=== PATIENT | male | born 1970 | race Caucasian/White ===

== ENCOUNTER 2018-01-01 19:02 | Inpatient (IN) | payer SELFPAY ==
[2018-01-01] VITALS (11 sets, daily range): BP systolic 79–107; BP diastolic 53–72
[~2018-01-01] VITALS: Ht 188 cm; Wt 95.3 kg
--- NOTE | ~2018-01-01 | EKG ---
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
--- NOTE | ~2018-01-01 | PR ---
[place], [place] PROGRESS NOTE NAME: FADI BALBUENA UNIT #: [id number] ROOM: 409 DOCTOR: KHADIJAH, PHD PISANO BIRTHDATE: [birth year] DOS: 01/05/2018 The patient's condition is unchanged and psychological services will continue to follow. Viviana Amato PhD CM:PNTRANS [id number] PHD ALIYA AMATO 01/06/18 0410 interface
--- NOTE | ~2018-01-01 | EKG ---
[place], [place] ELECTROCARDIOGRAM REPORT NAME: FADI BALBUENA UNIT #: [id number] ROOM: [facility] DOCTOR: LADY DRAFT REPORT BIRTHDATE: [birth year] [facility] Test Date: 2018-01-02 Test Time: 01:42:56 Pat Name: FADI BALBUENA Department: Room: [facility] 1 Gender: M Risk Engineer: VERA : 1970 Requested By: AILYN THRONE Order Number: [id number] Reading MD: Albino Tang MD Measurements Intervals [place] Rate: 90 P: 22 GA: 264 QRS: -33 QRSD: 81 T: 118 QT: 400 QTc: 490 Interpretive Statements Sinus rhythm Prolonged GA interval Low voltage, extremity leads Anteroseptal infarct, old Compared to ECG 01/01/2018 20:44:06 No significant change Electronically Signed On 01-02-2018 19:14:40 PDT by Albino Tang MD CM:EKGRPT:ELECTROCARDIOGRAM REPORT 1914 AILYN BRASHER DRAFT REPORT
--- NOTE | ~2018-01-01 | EKG ---
[place], [place] ELECTROCARDIOGRAM REPORT NAME: FADI BALBUENA UNIT #: [id number] ROOM: 409 DOCTOR: LADY DRAFT REPORT BIRTHDATE: [birth year] [facility] Test Date: 2018-01-10 Test Time: 02:31:14 Pat Name: FADI BALBUENA Department: [facility] Room: 409 1 Gender: M Yarder Engineer: Albino Apple : 1970 Requested By: CRESCENCIO HORVATH Order Number: [id number] Reading MD: Albino Tang MD Measurements Intervals [place] Rate: 79 P: 62 TN: 205 QRS: -64 QRSD: 90 T: 73 QT: 395 QTc: 454 Interpretive Statements Sinus rhythm Probable left atrial enlargement Low voltage, extremity leads Anteroseptal infarct, age indeterminate Compared to ECG 01/02/2018 06:40:29 Myocardial infarct finding still present Electronically Signed On 01-10-2018 6:00:45 PDT by Albino Tang MD CM:EKGRPT:ELECTROCARDIOGRAM REPORT 0 06 CRESCENCIO HORVATH DO EPIPHANY DRAFT REPORT CRESCENCIO HORVATH DO
--- NOTE | ~2018-01-01 | PR ---
[place], [place] PROGRESS NOTE NAME: FADI BALBUENA UNIT #: [id number] ROOM: 409 DOCTOR: CHANTAL ANDREWS ED.D MAR[place]) BIRTHDATE: [birth year] DOS: 01/05/2018 HISTORY OF PRESENT ILLNESS: The patient is a 48-year-old male referred by the hospitalist following a suicide attempt. He apparently was found near [facility] in [place], [place] after an overdose of Xanax and Glucophage. He is and I did meet along with Dr. Amato with the patient's , Shaylee. He does have one son. 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 He presently resides in [place], [place]. His medical history is pertinent for diabetes mellitus, congestive heart failure, multiple CVAs and major depressive disorder. According to his , he was treated at [facility] and then sent to [facility] in [place] for his heart issues. His ejection fraction ranges anywhere from 10%-35% when he was at [facility]. His medications include aspirin, Lasix, insulin, magnesium oxide, metformin, Aldactone, Wellbutrin, Diovan, losartan, Plavix, and Xanax. He denies any substance abuse issues whatsoever. This patient was somewhat awake and fairly lucid throughout the interview. He knew he was in the hospital, but he did not know which hospital. He did not know the date, but did know that it was 12/2017. His memory seemed to be slightly impaired because he was still quite lethargic from the overdose of drugs, in particular the Xanax. He states that he does follow with Dr. Elizondo who is a psychiatrist in [place], [place]. His indicated that was accurate, but he did not have a therapist. I strongly suggested he needed therapist once he is discharged from the hospital and he did agree with that. He states he has been given Xanax for anxiety attacks at one time, but does suffer from severe depression. The patient states that he became overwhelmed and depressed and decided to kill himself and then took his overdose of medications. At the present time, he adamantly denies any suicidal ideation or plan, but I will reserve final judgment until he is more medically stable. At this point in time, I do not think he needs inpatient psychiatric treatment, but I am not certain of that until he is closer to discharge. DIAGNOSES: Major depressive disorder, recurrent -- severe. RECOMMENDATIONS: The patient will need to follow up outpatient for Psychiatry and Psychology. Thank you very much for this consult. [place], [place] PROGRESS NOTE NAME: FADI BALBUENA UNIT #: [id number] ROOM: 409 DOCTOR: CHANTAL ANDREWS ED.D) BIRTHDATE: [birth year] CHANTAL ANDREWS ED.D CM:TANG 1506 [id number] CHANTAL ANDREWS ED.D (BOB) 01/19/18 0651 interface
--- NOTE | ~2018-01-01 | EKG ---
[place], [place] ELECTROCARDIOGRAM REPORT NAME: FADI BALBUENA UNIT #: [id number] ROOM: [facility] DOCTOR: LADY DRAFT REPORT BIRTHDATE: [birth year] [facility] Test Date: 2018-01-02 Test Time: 00:40:03 Pat Name: FADI BALBUENA Department: Room: [facility] 1 Gender: M Field Marketing Manager: VERA : 1970 Requested By: AILYN THORNE Order Number: [id number] Reading MD: Albino Tang MD Measurements Intervals [place] Rate: 86 P: 37 WV: 270 QRS: -35 QRSD: 85 T: QT: 400 QTc: 479 Interpretive Statements Sinus rhythm Prolonged [place] interval Low voltage, extremity leads Probable anteroseptal infarct, old Nonspecific T abnormalities, lateral leads Baseline wander in lead(s) V4 Compared to ECG 01/01/2018 20:44:06 First degree AV block now present T-wave abnormality is more prominent ST (T wave) deviation no longer present Electronically Signed On 01-02-2018 19:10:47 PDT by Albino Tang MD CM:EKGRPT:ELECTROCARDIOGRAM REPORT 09 AILYN LAOANY DRAFT REPORT AILYN THORNE DO
--- NOTE | ~2018-01-01 | EKG ---
[place], [place] ELECTROCARDIOGRAM REPORT NAME: FADI BALBUENA UNIT #: [id number] ROOM: [facility] DOCTOR: LADY DRAFT REPORT BIRTHDATE: [birth year] [facility] Test Date: 2018-01-02 Test Time: 01:36:20 Pat Name: FADI BALBUENA Department: Room: [place] [address] Gender: M External Relations Manager: VERA : 1970 Requested By: AILYN THORNE Order Number: [id number] Reading MD: Measurements Intervals [place] Rate: 88 P: 24 OR: 264 QRS: -28 QRSD: 82 T: QT: 419 QTc: 507 Interpretive Statements Sinus rhythm Prolonged OR interval Anterior infarct, old Nonspecific T abnormalities, lateral leads Prolonged QT interval Compared to ECG 01/01/2018 20:44:06 First degree AV block now present Myocardial infarct finding now present T-wave abnormality now present Prolonged QT interval now present Ventricular premature complex(es) no longer present ST (T wave) deviation no longer present CM:EKGRPT:ELECTROCARDIOGRAM REPORT 0136 AILYN BRASHER DRAFT REPORT AILYN THORNE DO
--- NOTE | ~2018-01-01 | EKG ---
[place], [place] ELECTROCARDIOGRAM REPORT NAME: FADI BALBUENA UNIT #: [id number] ROOM: [facility] DOCTOR: LADY DRAFT REPORT BIRTHDATE: [birth year] [facility] Test Date: 2018-01-01 Test Time: 19:34:15 Pat Name: FADI ANN Department: ER Room: 2 Gender: M Physical Testing Supervisor: VERA : 1970 Requested By: ANALY LIANG Order Number: [id number] Reading MD: Albino Tang MD Measurements Intervals [place] Rate: 97 P: 13 NH: 262 QRS: -28 QRSD: 93 T: 147 QT: 392 QTc: 498 Interpretive Statements Sinus rhythm Prolonged [place] interval Probable left atrial enlargement Borderline left axis deviation Low voltage, extremity leads Probable anteroseptal infarct, old Electronically Signed On 01-01-2018 19:39:56 PDT by Albino Tang MD CM:EKGRPT:ELECTROCARDIOGRAM REPORT 33 38 ANALY BRASHER DRAFT REPORT ANALY LIANG DO
--- NOTE | ~2018-01-01 | CON ---
[place], [place] REPORT OF CONSULTATION NAME: FADI BALBUENA UNIT #: [id number] ROOM: [facility] DOCTOR: CHANTAL ANDREWS ED.D (GURU) BIRTHDATE: [birth year] DOS: 01/02/2018 HISTORY OF PRESENT ILLNESS: The patient is a 47-year-old male referred by the hospitalist for an evaluation following a suicide attempt. At the present time, he is in the intensive care unit at [facility], but he remains comatose at this time. I was unable to complete an evaluation of this patient, but from his history, it appears that he suffers from diabetes mellitus, congestive heart failure, major depression and CVA. MEDICATIONS: Include aspirin, Lasix, insulin, magnesium oxide, metformin, Aldactone, Wellbutrin, Diovan, losartan, Plavix, and Xanax. He apparently has attempted suicide at one time in the past. I will reevaluate this patient on Wednesday, January 03, 2018 for a final summary of my recommendations. DIAGNOSIS: Major depressive disorder, severe, recurrent. Thank you very much for this consult. CHANTAL ANDREWS ED.D CM:CONSTR:REPORT OF CONSULTATION 1727 01/03/18 0526 interface
--- NOTE | ~2018-01-01 | EKG ---
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
--- NOTE | ~2018-01-01 | EKG ---
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
--- NOTE | ~2018-01-01 | PR ---
[place], [place] PROGRESS NOTE NAME: FADI BALBUENA UNIT #: [id number] ROOM: 409 DOCTOR: JULIANA DAILY,CHANTAL HORAN) BIRTHDATE: [birth year] DOS: SUBJECTIVE: At the present time, this patient denies any suicidal ideation or plan. He did admit to taking Xanax and also an increase in his Glucophage. He states that he no longer has any plans to hurt himself and will follow up with outpatient psychiatry and psychology. The patient and his were both together and she said she will make certain that he does get the therapy and he is quite willing to go. Since he is no longer suicidal, I believe this patient may be discharged home with his . He states he felt very badly that he did anything to hurt himself because he did not want to do anything to harm his 7-year-old son or his . DIAGNOSIS: Major depressive disorder, recurrent, severe. RECOMMENDATIONS: 1. The patient will be discharged when medically stable. 2. The patient should follow up with outpatient psychiatry and psychology once he is discharged from the hospital. Thank you very much for this consult. CHANTAL ANDREWS ED.D CM:TANG 24 7 CHANTAL ANDREWS ED.D (BOB) 01/07/18 0357 interface
[2018-01-01 19:21] LABS: BASO % 0.3 % (0.0-1.0); EOS # 0.1 10*3/uL (0.0-0.4); EOS % 2.4 % (1.0-4.0); HEMATOCRIT 32.8 % (42.0-52.0); HEMOGLOBIN 11.5 g/dl (14.0-18.0); LYMPH # 2.2 10*3/uL (1.3-4.4); LYMPH % 37.5 % (27.0-41.0); MEAN CELL VOLUME 91.9 fl (80.0-94.0); MEAN CORPUSCULAR HGB 32.2 pg (27.0-31.0); MEAN CORPUSCULAR HGB CONC 35.1 g/dl (33.0-37.0); MEAN PLATELET VOLUME 9.7 fl (9.6-12.3); MONO # 0.5 10*3/uL (0.1-1.0); MONO % 8.7 % (3.0-9.0); NEUT % 50.9 % (47.0-73.0); PLATELET COUNT AUTOMATED 311 10*3/uL (130-400); RED BLOOD COUNT 3.57 10*6/uL (4.50-5.90); RED CELL DISTRI WIDTH 13.8 % (0-14.5); WHITE BLOOD COUNT 5.9 10*3/uL (4.8-10.8)
[2018-01-01 19:30] LABS: ACT PARTIAL THROMBO TIME 23.6 SECONDS (20.8-31.5)
[2018-01-01 19:38] LABS: ALBUMIN 2.8 gm/dl (3.1-4.5); ALKALINE PHOSPHATASE 50 U/L (45-117); BUN 12 mg/dl (7-24); CHLORIDE 108 mmol/L (98-107); CREATININE 1.03 mg/dL (0.70-1.30); SGOT/AST 11 IU/L (3-35); SGPT/ALT 17 U/L (12-78); SODIUM 139 mmol/L (136-145); TOTAL PROTEIN 6.4 gm/dL (6.4-8.2)
[2018-01-01 19:39] LABS: TROPONIN I 0.032 ng/ml (<0.045)
[2018-01-01 19:41] LABS: ACETAMINOPHEN (TYLENOL) < 2.0 ug/ml (10-30); ETHYL ALCOHOL < 3.0 mg/dl (<3)
[2018-01-01 19:48] LABS: BILIRUBIN NEGATIVE (NEGATIVE); BLOOD NEGATIVE (NEGATIVE); CLARITY CLEAR (CLEAR); COLOR YELLOW (YELLOW); GLUCOSE 3+ (NEGATIVE); KETONE NEGATIVE (NEGATIVE); LEUKO ESTERASE NEGATIVE (NEGATIVE); NITRITE NEGATIVE (NEGATIVE); UROBILINOGEN 0.2 E.U./dl (0.2-1.0)
[2018-01-01 19:56] LABS: URINE AMPHETAMINES > 1000 (1000ng/ml); URINE BARBITURATES < 200 (200ng/ml); URINE BENZODIAZEPINES > 200 (200ng/ml); URINE CANNABINOIDS (THC) < 50 (50ng/ml); URINE COCAINE < 300 (300ng/ml); URINE METHADONE < 300 (300ng/ml); URINE OPIATES < 300 (300ng/ml)
[2018-01-01 19:57] LABS: URINE PHENCYCLIDINE < 25 (25ng/ml)
[2018-01-01] MEDS ORDERED: ASPIRIN CHEWABL81 MG PO (20:07)
[2018-01-01] MEDS ORDERED: CARVEDILOL3.125 MG PO (20:11)
[2018-01-01] MEDS ORDERED: ASPIRIN ADULT L81 MG PO (20:11)
[2018-01-01] MEDS ORDERED: LASIX40 MG PO (20:12)
[2018-01-01] MEDS ORDERED: HUMULIN 70100 UNIT/1 SQ (20:13)
[2018-01-01] MEDS ORDERED: MAGNESIUM OXID250 M2 PO (20:16)
[2018-01-01] MEDS ORDERED: GLUCOPHAGE1000 MG PO (20:29)
[2018-01-01] MEDS ORDERED: ALDACTONE25 M1 PO (20:30)
[2018-01-01] MEDS ORDERED: WELLBUTRIN SR150 MG PO (20:30)
[2018-01-01] MEDS ORDERED: PLAVIX75 M1 PO (20:31)
[2018-01-01] MEDS ORDERED: METOLAZONE2.5 MG PO (20:31)
[2018-01-01] MEDS ORDERED: LOSARTAN POTASS25 M1 PO (20:31)
[2018-01-01] MEDS ORDERED: DIOVAN80 M1 PO (20:31)
[2018-01-01] MEDS ORDERED: ZYLOPRIM300 MG PO (20:32)
[2018-01-01] MEDS ORDERED: XANAX0.5 MG PO (20:32)
[2018-01-01 21:10] LABS: ABG BASE EXCESS -2.4 mmol/L (-2.0-2.0); ABG HCO3 22.9 mmol/l (22-26); ABG O2 SATURATION 98.5 % (95-97); ARTERIAL BLOOD GAS PCO2 44.5 mmHg (35-45); ARTERIAL BLOOD GAS PH 7.332 (7.35-7.45)
[2018-01-02] VITALS (52 sets, daily range): BP systolic 87–122; BP diastolic 57–92
[2018-01-02 08:23] LABS: BASO % 0.2 % (0.0-1.0); EOS # 0.1 10*3/uL (0.0-0.4); EOS % 1.5 % (1.0-4.0); HEMATOCRIT 34.2 % (42.0-52.0); HEMOGLOBIN 11.7 g/dl (14.0-18.0); LYMPH # 1.4 10*3/uL (1.3-4.4); LYMPH % 16.2 % (27.0-41.0); MEAN CELL VOLUME 93.7 fl (80.0-94.0); MEAN CORPUSCULAR HGB 32.1 pg (27.0-31.0); MEAN CORPUSCULAR HGB CONC 34.2 g/dl (33.0-37.0); MEAN PLATELET VOLUME 9.8 fl (9.6-12.3); MONO # 0.5 10*3/uL (0.1-1.0); MONO % 5.4 % (3.0-9.0); NEUT # 6.8 10*3/uL (2.3-7.9); NEUT % 76.3 % (47.0-73.0); PLATELET COUNT AUTOMATED 316 10*3/uL (130-400); RED BLOOD COUNT 3.65 10*6/uL (4.50-5.90); RED CELL DISTRI WIDTH 14.1 % (0-14.5); WHITE BLOOD COUNT 8.9 10*3/uL (4.8-10.8)
[2018-01-02 08:54] LABS: CHLORIDE 111 mmol/L (98-107); POTASSIUM 4.6 mmol/L (3.5-5.1); SODIUM 141 mmol/L (136-145)
[2018-01-02 09:01] LABS: BUN 11 mg/dl (7-24); CHOLESTEROL 155 mg/dL (<200); CREATININE 0.95 mg/dL (0.70-1.30); HDL CHOLESTEROL 26 mg/dl (40-60); LDL CHOLESTEROL 90 mg/dL (9-159); PHOSPHOROUS 2.6 mg/dL (2.5-4.9); TRIGLYCERIDES 194 mg/dl (<150); VLDL CHOLESTEROL 39 mg/dL (6-40)
[2018-01-02 09:22] LABS: VITAMIN D, 25-HYDROXY 20.6 ng/mL (30-100)
[2018-01-03] VITALS (18 sets, daily range): BP systolic 104–206; BP diastolic 66–102
[2018-01-03 05:26] LABS: ALBUMIN 2.7 gm/dl (3.1-4.5); BUN 9 mg/dl (7-24); CHLORIDE 112 mmol/L (98-107); POTASSIUM 3.8 mmol/L (3.5-5.1); SODIUM 141 mmol/L (136-145)
[2018-01-03 05:29] LABS: ALKALINE PHOSPHATASE 51 U/L (45-117); CREATININE 0.89 mg/dL (0.70-1.30); SGOT/AST 8 IU/L (3-35); SGPT/ALT 15 U/L (12-78); TOTAL PROTEIN 6.5 gm/dL (6.4-8.2)
[2018-01-03 05:51] LABS: BASO % 0.2 % (0.0-1.0); EOS # 0.2 10*3/uL (0.0-0.4); EOS % 1.6 % (1.0-4.0); HEMATOCRIT 34.8 % (42.0-52.0); LYMPH # 1.3 10*3/uL (1.3-4.4); LYMPH % 13.1 % (27.0-41.0); MEAN CELL VOLUME 95.6 fl (80.0-94.0); MEAN CORPUSCULAR HGB CONC 34.5 g/dl (33.0-37.0); MEAN PLATELET VOLUME 10.1 fl (9.6-12.3); MONO # 0.6 10*3/uL (0.1-1.0); MONO % 6.3 % (3.0-9.0); NEUT # 7.8 10*3/uL (2.3-7.9); NEUT % 78.5 % (47.0-73.0); PLATELET COUNT AUTOMATED 309 10*3/uL (130-400); RED BLOOD COUNT 3.64 10*6/uL (4.50-5.90); RED CELL DISTRI WIDTH 14.3 % (0-14.5); WHITE BLOOD COUNT 9.9 10*3/uL (4.8-10.8)
[2018-01-04] VITALS: BP 121/85
[2018-01-04 04:00] VITALS: BP 129/93
[2018-01-04 06:03] LABS: BASO % 0.1 % (0.0-1.0); EOS # 0.1 10*3/uL (0.0-0.4); EOS % 1.2 % (1.0-4.0); HEMATOCRIT 36.7 % (42.0-52.0); HEMOGLOBIN 12.9 g/dl (14.0-18.0); LYMPH # 1.7 10*3/uL (1.3-4.4); LYMPH % 17.7 % (27.0-41.0); MEAN CELL VOLUME 95.6 fl (80.0-94.0); MEAN CORPUSCULAR HGB 33.6 pg (27.0-31.0); MEAN CORPUSCULAR HGB CONC 35.1 g/dl (33.0-37.0); MEAN PLATELET VOLUME 10.2 fl (9.6-12.3); MONO # 0.5 10*3/uL (0.1-1.0); MONO % 5.4 % (3.0-9.0); NEUT # 7.4 10*3/uL (2.3-7.9); NEUT % 75.3 % (47.0-73.0); PLATELET COUNT AUTOMATED 302 10*3/uL (130-400); RED BLOOD COUNT 3.84 10*6/uL (4.50-5.90); RED CELL DISTRI WIDTH 14.6 % (0-14.5); WHITE BLOOD COUNT 9.9 10*3/uL (4.8-10.8)
[2018-01-04 06:05] LABS: ALBUMIN 2.8 gm/dl (3.1-4.5); BUN 10 mg/dl (7-24); CHLORIDE 112 mmol/L (98-107); CREATININE 0.86 mg/dL (0.70-1.30); POTASSIUM 4.1 mmol/L (3.5-5.1); SGOT/AST 12 IU/L (3-35); SGPT/ALT 14 U/L (12-78); SODIUM 141 mmol/L (136-145)
[2018-01-04 06:08] LABS: ALKALINE PHOSPHATASE 53 U/L (45-117)
[2018-01-04 08:00] VITALS: BP 129/96
[2018-01-04 12:00] VITALS: BP 138/96
[2018-01-04 16:00] VITALS: BP 122/93
[2018-01-04 20:00] VITALS: BP 129/86
[2018-01-05] VITALS: BP 130/56
[2018-01-05 04:00] VITALS: BP 133/91
[2018-01-05 06:24] LABS: BUN 9 mg/dl (7-24); CHLORIDE 112 mmol/L (98-107); CREATININE 0.83 mg/dL (0.70-1.30); POTASSIUM 4.3 mmol/L (3.5-5.1); SODIUM 140 mmol/L (136-145)
[2018-01-05 06:26] LABS: HEMATOCRIT 36.8 % (42.0-52.0); HEMOGLOBIN 13.2 g/dl (14.0-18.0); MEAN CELL VOLUME 95.3 fl (80.0-94.0); MEAN CORPUSCULAR HGB 34.2 pg (27.0-31.0); MEAN CORPUSCULAR HGB CONC 35.9 g/dl (33.0-37.0); MEAN PLATELET VOLUME 10.7 fl (9.6-12.3); PLATELET COUNT AUTOMATED 277 10*3/uL (130-400); RED BLOOD COUNT 3.86 10*6/uL (4.50-5.90); RED CELL DISTRI WIDTH 14.3 % (0-14.5); WHITE BLOOD COUNT 11.3 10*3/uL (4.8-10.8)
[2018-01-05 08:00] VITALS: BP 141/95
[2018-01-05 08:13] LABS: BASOPHILS 1 % (0-1); PLATELET SUFFICIENCY NORMAL (NORMAL); TOTAL CELLS COUNTED 100 #CELLS
[2018-01-05 12:00] VITALS: BP 120/84
[2018-01-05 16:00] VITALS: BP 134/89
[2018-01-05 20:00] VITALS: BP 138/84
[2018-01-06] VITALS: BP 140/89
[2018-01-06 08:00] VITALS: BP 142/84
[2018-01-06 12:00] VITALS: BP 140/78
[2018-01-06 16:00] VITALS: BP 133/89
[2018-01-06 20:00] VITALS: BP 140/93
[2018-01-07] VITALS: BP 110/70
[2018-01-07 06:28] LABS: BASO % 0.3 % (0.0-1.0); EOS # 0.1 10*3/uL (0.0-0.4); EOS % 1.8 % (1.0-4.0); HEMOGLOBIN 10.5 g/dl (14.0-18.0); LYMPH # 1.5 10*3/uL (1.3-4.4); LYMPH % 20.5 % (27.0-41.0); MEAN CELL VOLUME 95.8 fl (80.0-94.0); MEAN CORPUSCULAR HGB 33.5 pg (27.0-31.0); MEAN PLATELET VOLUME 9.6 fl (9.6-12.3); MONO # 0.6 10*3/uL (0.1-1.0); MONO % 7.8 % (3.0-9.0); NEUT % 69.2 % (47.0-73.0); PLATELET COUNT AUTOMATED 287 10*3/uL (130-400); RED BLOOD COUNT 3.13 10*6/uL (4.50-5.90); RED CELL DISTRI WIDTH 14.1 % (0-14.5); WHITE BLOOD COUNT 7.2 10*3/uL (4.8-10.8)
[2018-01-07 06:39] LABS: ALBUMIN 2.2 gm/dl (3.1-4.5); ALKALINE PHOSPHATASE 57 U/L (45-117); BUN 9 mg/dl (7-24); CHLORIDE 104 mmol/L (98-107); CREATININE 0.84 mg/dL (0.70-1.30); PHOSPHOROUS 3.5 mg/dL (2.5-4.9); POTASSIUM 3.6 mmol/L (3.5-5.1); SGOT/AST 7 IU/L (3-35); SGPT/ALT 11 U/L (12-78); SODIUM 137 mmol/L (136-145); TOTAL PROTEIN 6.2 gm/dL (6.4-8.2)
[2018-01-07 09:45] VITALS: BP 110/78
[2018-01-07 12:00] VITALS: BP 112/70
[2018-01-07 16:00] VITALS: BP 113/75
[2018-01-07 20:00] VITALS: BP 105/66
[2018-01-08] VITALS: BP 93/57
[2018-01-08 07:07] LABS: BASO % 0.4 % (0.0-1.0); EOS # 0.3 10*3/uL (0.0-0.4); EOS % 3.3 % (1.0-4.0); HEMATOCRIT 34.6 % (42.0-52.0); HEMOGLOBIN 12.1 g/dl (14.0-18.0); LYMPH # 1.5 10*3/uL (1.3-4.4); LYMPH % 19.5 % (27.0-41.0); MEAN CELL VOLUME 94.5 fl (80.0-94.0); MEAN CORPUSCULAR HGB 33.1 pg (27.0-31.0); MEAN PLATELET VOLUME 9.7 fl (9.6-12.3); MONO # 0.6 10*3/uL (0.1-1.0); MONO % 7.4 % (3.0-9.0); NEUT # 5.2 10*3/uL (2.3-7.9); PLATELET COUNT AUTOMATED 322 10*3/uL (130-400); RED BLOOD COUNT 3.66 10*6/uL (4.50-5.90); RED CELL DISTRI WIDTH 13.5 % (0-14.5); WHITE BLOOD COUNT 7.5 10*3/uL (4.8-10.8)
[2018-01-08 07:41] LABS: CHLORIDE 96 mmol/L (98-107); POTASSIUM 3.8 mmol/L (3.5-5.1); SODIUM 133 mmol/L (136-145)
[2018-01-08 08:04] LABS: ALBUMIN 2.5 gm/dl (3.1-4.5); ALKALINE PHOSPHATASE 72 U/L (45-117); BUN 16 mg/dl (7-24); CREATININE 0.92 mg/dL (0.70-1.30); SGOT/AST 10 IU/L (3-35); SGPT/ALT 12 U/L (12-78); TOTAL PROTEIN 7.2 gm/dL (6.4-8.2)
[2018-01-08 09:45] VITALS: BP 110/72
[2018-01-08 12:00] VITALS: BP 92/64
[2018-01-08 15:56] VITALS: BP 105/69
[2018-01-08 20:00] VITALS: BP 117/73
[2018-01-09] VITALS: BP 104/68
[2018-01-09 06:44] LABS: BASO % 0.3 % (0.0-1.0); EOS # 0.3 10*3/uL (0.0-0.4); EOS % 2.6 % (1.0-4.0); HEMATOCRIT 30.3 % (42.0-52.0); HEMOGLOBIN 10.8 g/dl (14.0-18.0); LYMPH # 2.1 10*3/uL (1.3-4.4); LYMPH % 20.4 % (27.0-41.0); MEAN CELL VOLUME 92.9 fl (80.0-94.0); MEAN CORPUSCULAR HGB 33.1 pg (27.0-31.0); MEAN CORPUSCULAR HGB CONC 35.6 g/dl (33.0-37.0); MEAN PLATELET VOLUME 9.7 fl (9.6-12.3); MONO # 0.7 10*3/uL (0.1-1.0); MONO % 7.1 % (3.0-9.0); NEUT # 7.1 10*3/uL (2.3-7.9); NEUT % 69.2 % (47.0-73.0); PLATELET COUNT AUTOMATED 403 10*3/uL (130-400); RED BLOOD COUNT 3.26 10*6/uL (4.50-5.90); RED CELL DISTRI WIDTH 13.2 % (0-14.5); WHITE BLOOD COUNT 10.3 10*3/uL (4.8-10.8)
[2018-01-09 06:58] LABS: ALBUMIN 2.6 gm/dl (3.1-4.5); ALKALINE PHOSPHATASE 64 U/L (45-117); BUN 20 mg/dl (7-24); CHLORIDE 93 mmol/L (98-107); CREATININE 1.01 mg/dL (0.70-1.30); POTASSIUM 3.9 mmol/L (3.5-5.1); SGOT/AST 10 IU/L (3-35); SGPT/ALT 13 U/L (12-78); SODIUM 132 mmol/L (136-145); TOTAL PROTEIN 7.5 gm/dL (6.4-8.2)
[2018-01-09 08:00] VITALS: BP 104/68
[2018-01-09 12:00] VITALS: BP 116/77
[2018-01-09 16:00] VITALS: BP 101/65; BP 101/66
[2018-01-09 20:00] VITALS: BP 107/74
[2018-01-10] VITALS: BP 100/60
[2018-01-10 05:55] LABS: BASO % 0.3 % (0.0-1.0); EOS # 0.2 10*3/uL (0.0-0.4); HEMOGLOBIN 12.5 g/dl (14.0-18.0); LYMPH # 1.4 10*3/uL (1.3-4.4); LYMPH % 19.1 % (27.0-41.0); MEAN CELL VOLUME 92.5 fl (80.0-94.0); MEAN CORPUSCULAR HGB 32.1 pg (27.0-31.0); MEAN CORPUSCULAR HGB CONC 34.7 g/dl (33.0-37.0); MEAN PLATELET VOLUME 9.3 fl (9.6-12.3); MONO # 0.6 10*3/uL (0.1-1.0); MONO % 8.5 % (3.0-9.0); NEUT # 5.2 10*3/uL (2.3-7.9); NEUT % 69.7 % (47.0-73.0); PLATELET COUNT AUTOMATED 380 10*3/uL (130-400); RED BLOOD COUNT 3.89 10*6/uL (4.50-5.90); RED CELL DISTRI WIDTH 13.1 % (0-14.5); WHITE BLOOD COUNT 7.5 10*3/uL (4.8-10.8)
[2018-01-10 06:30] LABS: ALBUMIN 2.9 gm/dl (3.1-4.5); ALKALINE PHOSPHATASE 72 U/L (45-117); BUN 22 mg/dl (7-24); CHLORIDE 91 mmol/L (98-107); CREATININE 1.03 mg/dL (0.70-1.30); POTASSIUM 4.1 mmol/L (3.5-5.1); SGOT/AST 8 IU/L (3-35); SGPT/ALT 15 U/L (12-78); SODIUM 131 mmol/L (136-145)
[2018-01-10 08:00] VITALS: BP 119/80
[2018-01-10 12:00] VITALS: BP 119/80
[2018-01-10 13:00] VITALS: BP 111/71
[2018-01-10 16:00] VITALS: BP 101/66
[2018-01-10 20:00] VITALS: BP 108/72
[2018-01-11] VITALS: BP 103/69
[2018-01-11 06:40] LABS: BASO % 0.5 % (0.0-1.0); EOS # 0.2 10*3/uL (0.0-0.4); HEMATOCRIT 34.7 % (42.0-52.0); HEMOGLOBIN 12.4 g/dl (14.0-18.0); LYMPH # 1.5 10*3/uL (1.3-4.4); LYMPH % 24.1 % (27.0-41.0); MEAN CELL VOLUME 91.8 fl (80.0-94.0); MEAN CORPUSCULAR HGB 32.8 pg (27.0-31.0); MEAN CORPUSCULAR HGB CONC 35.7 g/dl (33.0-37.0); MEAN PLATELET VOLUME 9.4 fl (9.6-12.3); MONO # 0.8 10*3/uL (0.1-1.0); MONO % 12.1 % (3.0-9.0); NEUT # 3.8 10*3/uL (2.3-7.9); NEUT % 59.8 % (47.0-73.0); PLATELET COUNT AUTOMATED 399 10*3/uL (130-400); RED BLOOD COUNT 3.78 10*6/uL (4.50-5.90); WHITE BLOOD COUNT 6.3 10*3/uL (4.8-10.8)
[2018-01-11 07:00] LABS: ALBUMIN 2.8 gm/dl (3.1-4.5); ALKALINE PHOSPHATASE 72 U/L (45-117); CHLORIDE 93 mmol/L (98-107); CREATININE 1.11 mg/dL (0.70-1.30); POTASSIUM 3.8 mmol/L (3.5-5.1); SGOT/AST 10 IU/L (3-35); SGPT/ALT 15 U/L (12-78); SODIUM 132 mmol/L (136-145); TOTAL PROTEIN 8.1 gm/dL (6.4-8.2)
[2018-01-11 07:17] LABS: BUN 32 mg/dl (7-24)
[2018-01-11 08:00] VITALS: BP 106/67; BP 116/78
[2018-01-11 12:00] VITALS: BP 96/56
[2018-01-11] MEDS ORDERED: CARVEDILOL6.25 MG PO (14:00)
[2018-01-11] MEDS ORDERED: WELLBUTRIN SR150 MG PO (16:34)
== END 2018-01-11 16:04 | disposition home or self-care (01) | DRG 917 ==
LOC: ED 19:02 → ICCU 20:14 → EDHOLD 20:14 → ICCU 20:51 → 4E 01-05 20:44
PROVIDERS: Emergency Medicine; Internal Medicine; Student in an Organized Health Care Education/Training Program
DX: T42.4X1A Poisoning by benzodiazepines, accidental (unintentional), initial encounter (principal); J96.00 Acute respiratory failure, unspecified whether with hypoxia or hypercapnia; G93.41 Metabolic encephalopathy; I47.2 Ventricular tachycardia; E44.0 Moderate protein-calorie malnutrition; F33.2 Major depressive disorder, recurrent severe without psychotic features; D64.9 Anemia, unspecified; S89.92XA Unspecified injury of left lower leg, initial encounter; E87.2 Acidosis; I42.0 Dilated cardiomyopathy; I50.42 Chronic combined systolic (congestive) and diastolic (congestive) heart failure; E11.65 Type 2 diabetes mellitus with hyperglycemia; F41.9 Anxiety disorder, unspecified; E87.8 Other disorders of electrolyte and fluid balance, not elsewhere classified; M17.12 Unilateral primary osteoarthritis, left knee; R53.1 Weakness; F15.10 Other stimulant abuse, uncomplicated; M25.462 Effusion, left knee; X58.XXXA Exposure to other specified factors, initial encounter; Z79.82 Long term (current) use of aspirin; F13.10 Sedative, hypnotic or anxiolytic abuse, uncomplicated; Z79.84 Long term (current) use of oral hypoglycemic drugs; Z79.899 Other long term (current) drug therapy; Z79.4 Long term (current) use of insulin; Z86.73 Personal history of transient ischemic attack (TIA), and cerebral infarction without residual deficits; Z88.8 Allergy status to other drugs, medicaments and biological substances; Y92.89 Other specified places as the place of occurrence of the external cause; Y93.89 Activity, other specified; Y99.8 Other external cause status; Z68.28 Body mass index [BMI] 28.0-28.9, adult